=== PATIENT | female | born 1940 | race Caucasian/White ===

== ENCOUNTER 2016-10-17 21:22 | Emergency (ER) | payer MEDICARE, MEDICAID ==
[2016-10-18] MEDS ORDERED: Oseltamivir Phosphate 75 MG CAP ONE (00:14)
--- NOTE | 2016-10-18 06:13 | RAD ---
EXAMINATION:CHEST - 2 VIEWS CLINICAL INDICATION: Cough and fever COMPARISON:none FINDINGS: Heart size is at the upper limits of normal. There is mild aortic ectasia. There is no pleural effusion. The lungs are clear. 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 No compression deformities are seen. IMPRESSION: Senescent changes of the thorax. No acute infiltrate or effusion is identified.
== END 2016-10-18 00:34 | disposition home or self-care (01) ==
LOC: ED 21:22
DX: J11.1 Influenza due to unidentified influenza virus with other respiratory manifestations (principal); E11.9 Type 2 diabetes mellitus without complications; I10 Essential (primary) hypertension; G80.9 Cerebral palsy, unspecified
CPT/HCPCS: 71020; 87804; 99283 ×2; A9270